=== PATIENT | male | born 2000 | race Caucasian/White ===

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

== ENCOUNTER 2019-11-02 15:49 | Emergency (ER) | payer SELFPAY ==
[2019-11-02 15:56] VITALS: BP 151/98; PULSE 83
[2019-11-02] MEDS ORDERED: Sodium Chloride 0.9% 10 ML Syringe FLUSH PRN (16:07)
[2019-11-02] MEDS ORDERED: Ondansetron 4 MG/2 ML SDV IVPUSH ONE (16:07)
[2019-11-02] MEDS ORDERED: Sodium Chloride 0.9% 1,000 ML IV SCH (16:15)
--- NOTE | 2019-11-02 16:25 | EDM.PDOC ---
ED HPI GENERAL MEDICAL PROBLEM - General Chief Complaint: Abdominal Pain Stated Complaint: vomiting/diarrhea/body aches Time Seen by Provider: 11/02/19 15:58 Source of Information: Reports: Patient History Limitations: Reports: No Limitations - History of Present Illness INITIAL COMMENTS - FREE TEXT/NARRATIVE: Patient is a 19-year-old male who presents with complaints of nausea, vomiting, watery diarrhea, and generalized body aches. He denies any abdominal pain or cramping. States that he "hurts all over ". He specifically verbalizes pain through the muscles of his back that wraps around to his bilateral hips. Patient's girlfriend had previously told the nursing staff that the patient was having right lower quadrant abdominal pain, however patient denies this at this time. He is having no pain in his abdomen but rather generalized pain "everywhere ". States that the symptoms of vomiting and diarrhea started around 11 AM he has had no known sick contacts. Denies any fever, chills, dysuria, or frequency. Right Lower Abdominal Pain Score (Numeric/FACES): 8 Generalized Pain Score (Numeric/FACES): 8 - Related Data Allergies Allergy/AdvReac Type Severity Reaction Status Date / Time aripiprazole [From Abilify] Allergy Rash Verified 11/02/19 15:56 Home Meds: Home Meds Ondansetron [Zofran ODT] 4 mg PO Q6H PRN #10 tab.dis 11/02/19 [Rx] Past Medical History Respiratory History: Reports: Asthma Psychiatric History: Reports: Bipolar, Mood Swings - Infectious Disease History Infectious Disease History: Reports: None - Past Surgical History HEENT Surgical History: Reports: Adenoidectomy, Myringotomy w Tube(s), Tonsillectomy Social & Family History - Family History Family Medical History: Noncontributory - Tobacco Use Smoking Status *Q: Never Smoker - Caffeine Use Caffeine Use: Reports: Coffee - Recreational Drug Use Recreational Drug Use: No ED ROS GENERAL - Review of Systems Review Of Systems: See Below Constitutional: Reports: No Symptoms. Denies: Fever, Chills HEENT: Reports: No Symptoms Respiratory: Reports: No Symptoms Cardiovascular: Reports: No Symptoms Endocrine: Reports: No Symptoms GI/Abdominal: Reports: No Symptoms, Diarrhea, Nausea, Vomiting. Denies: Abdominal Pain, Distension : Reports: No Symptoms. Denies: Discharge, Dysuria, Frequency Musculoskeletal: Reports: Other (Generalized body aches) Skin: Reports: No Symptoms Neurological: Reports: No Symptoms Psychiatric: Reports: No Symptoms Hematologic/Lymphatic: Reports: No Symptoms Immunologic: Reports: No Symptoms ED EXAM, GI/ABD - Physical Exam Exam: See Below Exam Limited By: No Limitations General Appearance: Alert, WD/WN, No Apparent Distress Respiratory/Chest: No Respiratory Distress, Lungs Clear, Normal Breath Sounds, No Accessory Muscle Use, Chest Non-Tender Cardiovascular: Normal Peripheral Pulses, Regular Rate, Rhythm, No Edema, No Gallop, No JVD, No Murmur, No Rub GI/Abdominal Exam: Normal Bowel Sounds, Soft, Non-Tender, No Organomegaly, No Distention, No Abnormal Bruit, No Mass, Pelvis Stable. No: Guarding, Rigid, Rebound Back Exam: Normal Inspection, Full Range of Motion, Other (Generalized muscle tenderness throughout.) Neurological: Alert, Oriented, CN II-XII Intact, Normal Cognition, Normal Gait, Normal Reflexes, No Motor/Sensory Deficits Psychiatric: Normal Affect, Normal Mood Skin Exam: Warm, Dry, Intact, Normal Color, No Rash Course - Vital Signs Last Recorded V/S: Last Vital Signs Temp 98.7 F 11/02/19 15:54 Pulse 83 11/02/19 15:54 Resp 16 11/02/19 15:54 BP 151/98 H 11/02/19 15:54 Pulse Ox 97 11/02/19 18:16 - Orders/Labs/Meds Orders: Active Orders 24 hr Category Date Time Status Peripheral IV Care [RC] . DIRECTED Care 11/02/19 16:08 Active Peripheral IV Insertion Adult [OM.PC] Stat Oth 11/02/19 16:07 Ordered Labs: Laboratory Tests 11/02/19 11/02/19 11/02/19 Range/Units 16:40 16:40 17:20 WBC 11.58 H (4.23-9.07) K/mm3 RBC 5.63 (4.63-6.08) M/mm3 Hgb 16.4 D (13.7-17.5) gm/dl Hct 48.7 (40.1-51.0) % MCV 86.5 D (79.0-92.2) fl MCH 29.1 (25.7-32.2) pg MCHC 33.7 (32.2-35.5) g/dl RDW Std Deviation 42.8 (35.1-43.9) fL Plt Count 226 D (163-337) K/mm3 MPV 11.4 (9.4-12.3) fl Neut % (Auto) 89.1 H (34.0-67.9) % Lymph % (Auto) 2.9 L (21.8-53.1) % [place] % (Auto) 6.9 (5.3-12.2) % Eos % (Auto) 0.9 (0.8-7.0) Baso % (Auto) 0.1 (0.1-1.2) % Neut # (Auto) 10.31 H (1.78-5.38) K/mm3 Lymph # (Auto) 0.34 L (1.32-3.57) K/mm3 [place] # (Auto) 0.80 (0.30-0.82) K/mm3 Eos # (Auto) 0.11 (0.04-0.54) K/mm3 Baso # (Auto) 0.01 (0.01-0.08) K/mm3 Manual Slide Review Abnormal smear Sodium 139 (136-145) mEq/L Potassium 4.0 (3.5-5.1) mEq/L Chloride 103 (98-107) mEq/L Carbon Dioxide 28 (21-32) mEq/L Anion Gap 12.0 (5-15) BUN 18 (7-18) mg/dL Creatinine 1.1 (0.7-1.3) mg/dL Est Cr Clr Drug Dosing 121.06 mL/min Estimated GFR (MDRD) > 60 (>60) mL/min BUN/Creatinine Ratio 16.4 (14-18) Glucose 114 H (74-106) mg/dL Calcium 9.6 (8.5-10.1) mg/dL Total Bilirubin 1.0 (0.2-1.0) mg/dL AST 27 (15-37) U/L ALT 32 (16-63) U/L Alkaline Phosphatase 125 H (46-116) U/L C-Reactive Protein 0.9 (<1.0) mg/dL Total Protein 8.3 H (6.4-8.2) g/dl Albumin 4.4 (3.4-5.0) g/dl Globulin 3.9 gm/dL Albumin/Globulin Ratio 1.1 (1-2) Urine Color Yellow (Yellow) Urine Appearance Clear (Clear) Urine pH 5.5 (5.0-8.0) Ur Specific [place] > or = 1.030 (1.005-1.030) Urine Protein Negative (Negative) Urine Glucose (UA) Negative (Negative) Urine Ketones Negative (Negative) Urine Occult Blood Negative (Negative) Urine Nitrite Negative (Negative) Urine Bilirubin Negative (Negative) Urine Urobilinogen 0.2 (0.2-1.0) Ur Leukocyte Esterase Negative (Negative) Urine RBC 0-5 (0-5) /hpf Urine WBC 0-5 (0-5) /hpf Ur Squamous Epith Cells 0-5 (0-5) /hpf Urine Bacteria Few (FEW) /hpf Urine Mucus Moderate H (FEW) /hpf Meds: Medications Discontinued Medications Generic Name Dose Route Start Last Admin Trade Name Freq PRN Reason Stop Dose Admin Sodium Chloride 1,000 mls @ 999 mls/hr 11/02/19 16:15 11/02/19 16:39 Normal Saline IV 999 mls/hr ASDIRECTED CELESTINE Administration Ondansetron HCl 4 mg 11/02/19 16:07 11/02/19 16:39 Zofran IVPUSH 11/02/19 16:08 4 mg ONETIME ONE Administration Sodium Chloride 10 ml 11/02/19 16:07 11/02/19 16:39 Saline Flush FLUSH 10 ml ASDIRECTED PRN Administration Keep Vein Open - Re-Assessments/Exams Free Text/Narrative Re-Assessment/Exam: 11/02/19 18:03 Hematology was significant for a slightly elevated white count 11.58. Work-up was otherwise normal. CRP was normal. There are no signs of dehydration. On reassessment, patient's nausea has improved. He has had no recurrence of diarrhea while in the ER. He continues to deny any abdominal pain. Discussed with patient that is likely dealing with a viral gastroenteritis. We will discharge him home with some Zofran as well as recommendations for clear liquid diet. Discharge instructions as documented. Departure - Departure Time of Disposition: 18:01 Disposition: Home, Self-Care 01 Condition: Fair Clinical Impression: Gastroenteritis - Discharge Information *PRESCRIPTION DRUG MONITORING PROGRAM REVIEWED*: No *COPY OF PRESCRIPTION DRUG MONITORING REPORT IN PATIENT BRIANA: No Prescriptions: Ondansetron [Zofran ODT] 4 mg PO Q6H PRN #10 tab.dis PRN Reason: Nausea/Vomiting Instructions: Viral Gastroenteritis, Adult Referrals: PCP,None [Primary Care Provider] - Forms: ED Department Discharge Additional Instructions: You were seen in the emergency department today for generalized body aches, vomiting, and diarrhea that started around 11:00 today. Work-up included blood work and a urinalysis. The results of these were found to be normal. As we discussed, it is likely that you are dealing with a viral gastroenteritis. The symptoms generally last from 24 to 72 hours. A prescription for Zofran for nausea has been sent to clinic pharmacy. Uses medication as prescribed. Recommend a clear liquid diet for the next 24 hours and then advance as tolerated. Avoid dairy products and fruit juices until symptoms have completely resolved. If you should experience any worsening symptoms or fail to improve over the course of the next couple days as expected, I would recommend that you return to the emergency department or follow-up in the clinic. Sepsis Event Note - Evaluation Sepsis Screening Result: No Definite Risk - Focused Exam Vital Signs: Vital Signs Temp Pulse Resp BP Pulse Ox 11/02/19 18:16 97 11/02/19 15:54 98.7 F 83 16 151/98 H 100 Date Exam was Performed: 11/02/19 Time Exam was Performed: 21:55 - My Orders Last 24 Hours: My Active Orders 11/02/19 16:07 Peripheral IV Insertion Adult [OM.PC] Stat 11/02/19 16:08 Peripheral IV Care [RC] . DIRECTED - Assessment/Plan Last 24 Hours: My Active Orders 11/02/19 16:07 Peripheral IV Insertion Adult [OM.PC] Stat 11/02/19 16:08 Peripheral IV Care [RC] . DIRECTED
== END 2019-11-02 18:18 | disposition home or self-care (01) ==
LOC: JD.ED 15:49
DX: K52.9 Noninfective gastroenteritis and colitis, unspecified (principal); Z96.22 Myringotomy tube(s) status; Z98.890 Other specified postprocedural states; Z88.8 Allergy status to other drugs, medicaments and biological substances
CPT/HCPCS: 36415; 80053; 81001; 85025; 86140; 96361; 96374; 99284; J2405; J7030; 99283

== ENCOUNTER 2020-06-27 05:07 | Emergency (ER) | payer BC ==
[2020-06-27 05:26] VITALS: BP 147/89; PULSE 79
--- NOTE | 2020-06-27 05:34 | EDM.PDOC ---
ED HPI GENERAL MEDICAL PROBLEM - General Chief Complaint: ENT Problem Stated Complaint: POSSIBLY BROKEN NOSE..2 DAYS AGO Time Seen by Provider: 06/27/20 05:29 Source of Information: Reports: Patient History Limitations: Reports: No Limitations - History of Present Illness INITIAL COMMENTS - FREE TEXT/NARRATIVE: 19-year-old male reports to the ED for evaluation of persistent bleeding from the left naris primarily. 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 When the machine hit the ground the handle flew up and struck him directly in the nose and maxilla inferior to the nose. He reports that subsequently his nose is continued to bleed or have the snuffles. He cannot tell which side is bleeding the most but it appears clinically it is the left. He denies spitting up any blood. Reports diffuse nasal congestion. Has a headache and severe pain on touching his nose. 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 [No Known Home Meds] 06/27/20 [History] Past Medical History Respiratory History: Reports: Asthma Psychiatric History: Reports: Bipolar, Mood Swings - Infectious Disease History Infectious Disease History: Reports: None - Past Surgical History HEENT Surgical History: Reports: Adenoidectomy, Myringotomy w Tube(s), Tonsillectomy Social & Family History - Family History Family Medical History: Noncontributory - Caffeine Use Caffeine Use: Reports: Coffee - Living Situation & Occupation Living situation: Reports: Single Occupation: Employed ED ROS ENT - Review of Systems Review Of Systems: See Below Constitutional: Reports: No Symptoms HEENT: Reports: Nosebleed (Still bleeding from both sides of the nose and trauma 2 days ago), Nose Pain. Denies: Glasses Respiratory: Reports: No Symptoms Cardiovascular: Reports: No Symptoms Endocrine: Reports: No Symptoms GI/Abdominal: Reports: No Symptoms : Reports: No Symptoms Musculoskeletal: Reports: No Symptoms Skin: Reports: No Symptoms Neurological: Reports: No Symptoms ED EXAM, ENT - Physical Exam Exam: See Below Exam Limited By: No Limitations General Appearance: Alert, WD/WN, No Apparent Distress, Other (None very nasally congested. Vital signs are normal with temperature of 36.4 heart rate 80 and sinus respiratory is 20 with O2 sats of 97% room air BP mildly elevated 147/89.) Eye Exam: Bilateral Eye: Normal Inspection, PERRL Nose: Other (Nose clinically is not severely deformed or swollen. There is some mild persistent bleeding from the floor and lateral aspect of the left nares. No active bleeding appreciated from the right nares at this time) Mouth/Throat: Normal Gums, Normal Lips (No loose teeth identified.), Normal Oropharynx (Blood in the posterior pharynx noted.), Normal Teeth. No: Dental Tenderness Head: Atraumatic, Scalp Ecchymosis, Other (Overt signs of pain across the zygoma. Pain both right and left nasal alae.) Neck: Normal Inspection, Supple, Non-Tender. No: Lymphadenopathy (L), Lymphadenopathy (R) Course - Vital Signs Last Recorded V/S: Last Vital Signs Temp 36.4 C 06/27/20 05:19 Pulse 79 06/27/20 05:19 Resp 20 06/27/20 05:19 BP 147/89 H 06/27/20 05:19 Pulse Ox 97 06/27/20 05:19 - Orders/Labs/Meds Meds: Medications Discontinued Medications Generic Name Dose Route Start Last Admin Trade Name Freq PRN Reason Stop Dose Admin Oxymetazoline HCl 15 ml 06/27/20 05:35 06/27/20 05:44 Nasal Decongestant [place] CHRISTIAN 06/27/20 05:36 15 ml ONETIME ONE Administration - Radiology Interpretation Free Text/Narrative:: 19-year-old male presents to the ED after suffering blunt mid facial trauma from the handle of a tamper/packing machine was unloading from the back of a truck 2 days ago. As the largest portion of the machine hit the ground the handle flew up and struck him directly in the nose and maxilla inferior to the nose. He r eports persistent bleeding from the left anterior nares. Denies spitting up any blood. States always blood on his pillow the last 2 days when he has been sleeping. Nose is congested. Exam shows that the nasal mucosa is intact. There is bleeding from the floor of the left naris and lateral daily. No septal hematoma evident. It appears that the septum is midline at this time. He does have some pain throughout the maxilla inferior to the nose. No blood in the oropharynx. No dental malalignment or loose teeth identified. Plan maxillofacial CT to be done. - Re-Assessments/Exams Free Text/Narrative Re-Assessment/Exam: 06/27/20 06:00 CT of the maxillofacial bones has been completed without contrast. It reveals no fractures through the anterior posterior or medial colindres of either maxillary sinus. There are polyps in both nasal sinuses. There is no fracture of the nasal spine. There appears to be a fracture of the midportion of the vomer with slight deviation to the left side. There is extensive soft tissue swelling of the entire left anterior naris. No fractures around the periorbital bones. The remainder of the maxilla is intact without any fractures or dental injuries. Patient will be using Afrin nasal spray to use escorts to the left side of the nares every 12 hours for the next 3 days to gain control of bleeding and let the soft tissue swelling go down. Note given to excuse him from the workplace today and he is for the next 2 days. Continue Motrin 600 mg every 6 hours needed for pain relief. Departure - Departure Time of Disposition: 06:01 Disposition: Home, Self-Care 01 Condition: Fair Clinical Impression: Contusion of nose, initial encounter Closed fracture nasal bone Qualifiers: Encounter type: initial encounter Qualified Code(s): S02.2XXA - Fracture of nasal bones, initial encounter for closed fracture - Discharge Information *PRESCRIPTION DRUG MONITORING PROGRAM REVIEWED*: Not Applicable *COPY OF PRESCRIPTION DRUG MONITORING REPORT IN PATIENT BRIANA: Not Applicable Instructions: Nasal Fracture, [id number], Contusion, [id number] Referrals: PCP,None [Primary Care Provider] - Forms: ED Department Discharge, ED Return to Work/School Form Additional Instructions: Evaluation in the emergency room this morning in regards to persistent bleeding from the left side of your naris post nasal trauma 2 days ago. This is a work- related injury. As you indicated the handle of the tamper chain came back and struck you in the nose and maxilla the tissue and bone below the nose. Persistent oozing from the left side of your nose since that time. CT of the maxillofacial bones shows no fractures through the maxillary sinuses. The nasal spine bone is on injured. There is a fracture of the septum of the nose or the vomer bone with slight deviation to the left. Large amount of soft tissue swelling appreciated on the left side involving the sphenoid sinus on the left side. Treatment is good to continue Motrin 600 mg every 6 hours needed this for pain relief. Afrin nasal spray 2 squirts to the left side every 12 hours for the next 3 days to gain control of bleeding and help reduce soft tissue swelling secondary to the trauma. Suggest off work today to rest and allow the left- sided swelling to clot well and stop bleeding. Sepsis Event Note (ED) - Evaluation Sepsis Screening Result: No Definite Risk
[2020-06-27] MEDS ORDERED: Oxymetazoline 0.05% Nasal Spray 30 ML Bottle NAS ONE (05:35)
--- NOTE | 2020-06-27 09:08 | CT ---
"PROCEDURE INFORMATION: Exam: CT Maxillofacial Without Contrast Exam date and time: 06/27/2020 5:31 AM Age: 19 years old Clinical indication: Injury or trauma; Work related; Blunt trauma (contusions or hematomas); Injury details: Blunt mid face trauma from handle of a tamper machine. Persistent bleeding lt nares. Pain maxilla inferior to nose TECHNIQUE: Imaging protocol: Computed tomography images of the face without contrast. Radiation optimization: All CT scans at this facility use at least one of these dose optimization techniques: automated exposure control; mA and/or kV adjustment per patient size (includes targeted exams where dose is matched to clinical indication); or iterative reconstruction. COMPARISON: No relevant prior studies available. FINDINGS: Orbital cavity: The globes appear grossly intact, and no definite intraorbital hematoma is identified. Bones/joints: The orbital floors and lamina papyracea are intact. The temporomandibular joints are normally aligned. No acute fracture is identified. Paranasal sinuses: Mild chronic mucosal disease involves the maxillary and sphenoid sinuses, with some retention cysts or polyps in the maxillary sinuses. The paranasal sinuses and air cells are otherwise clear. Mastoid air cells: The mastoid air cells are clear. Soft tissues: The soft tissues appear grossly unremarkable. Brain: The visualized intracranial structures appear grossly unremarkable. IMPRESSION: No acute fracture identified. Thank you for allowing us to participate in the care of your patient. CLAUDIA FLANAGAN | Final Radiology Report CONFIDENTIALITY STATEMENT This report is intended only for use by the referring physician, and only in accordance with law. If you received this in error, call [phone]. Page 2 of 2 Dictated and Authenticated by: Bebo Youssef MD 06/27/2020 7:05 AM Central Time ([place] & [place]) EMILY"
== END 2020-06-27 06:16 | disposition home or self-care (01) ==
LOC: JD.ED 05:07
DX: S02.2XXA Fracture of nasal bones, initial encounter for closed fracture (principal); J45.909 Unspecified asthma, uncomplicated; Z88.8 Allergy status to other drugs, medicaments and biological substances; Z90.49 Acquired absence of other specified parts of digestive tract; W22.8XXA Striking against or struck by other objects, initial encounter; Y99.0 Civilian activity done for income or pay
CPT/HCPCS: 70486; 99283; A9270

== ENCOUNTER 2021-09-17 12:13 | Emergency (ER) | payer BC ==
[2021-09-17 12:42] VITALS: BP 137/85; PULSE 75
[2021-09-17] MEDS ORDERED: Lactated Ringers 1,000 ML IV ONE (13:17)
[2021-09-17] MEDS ORDERED: Sodium Chloride 0.9% 10 ML SDV FLUSH ONE (15:06)
[2021-09-17] MEDS ORDERED: Iopamidol 612 MG/ML 100 ML Bottle IVPUSH ONE (15:06)
== END 2021-09-17 17:00 | disposition home or self-care (01) ==
LOC: JD.ED 12:13
DX: R10.31 Right lower quadrant pain (principal); Q55.4 Other congenital malformations of vas deferens, epididymis, seminal vesicles and prostate; Z88.8 Allergy status to other drugs, medicaments and biological substances
CPT/HCPCS: 36415; 74177; 76705; 80053; 81003; 83690; 85025; 86140; 99284; J7120; Q9967; 99285

== ENCOUNTER 2023-02-09 20:13 | Emergency (ER) | payer BC ==
[2023-02-09] MEDS ORDERED: Lactated Ringers 1,000 ML IV ONE (20:42)
[2023-02-09] MEDS ORDERED: Lactated Ringers 1,000 ML IV SCH (20:45)
[2023-02-09] MEDS ORDERED: Ondansetron 4 MG/2 ML SDV IVPUSH ONE ×2 (20:52→21:54)
[2023-02-09 21:04] LABS: BASOPHILS ABSOLUTE AUTO 0.01 K/mm3 (0.01-0.08); BASOPHILS PERCENT AUTO 0.1 % (0.1-1.2); EOSINOPHILS ABSOLUTE AUTO 0.02 K/mm3 (0.04-0.54); EOSINOPHILS PERCENT AUTO 0.2 (0.8-7.0); HEMATOCRIT 49.5 % (40.1-51.0); HEMOGLOBIN 16.8 gm/dl (13.7-17.5); IMMATURE GRAN ABSOLUTE AUTO 0.02 K/mm3 (0.00-0.10); IMMATURE GRAN PERCENT AUTO 0.2 % (<=1.0); LYMPHOCYTES ABSOLUTE AUTO 0.32 K/mm3 (1.32-3.57); LYMPHOCYTES PERCENT AUTO 3.4 % (21.8-53.1); MEAN CORPUSCULAR HEMOGLOBIN 30.7 pg (25.7-32.2); MEAN CORPUSCULAR HGB CONC 33.9 g/dl (32.2-35.5); MEAN CORPUSCULAR VOLUME 90.3 fl (79.0-92.2); MEAN PLATELET VOLUME 10.8 fl (9.4-12.3); MONOCYTES ABSOLUTE AUTO 0.57 K/mm3 (0.30-0.82); MONOCYTES PERCENT AUTO 6.1 % (5.3-12.2); NEUTROPHILS ABSOLUTE AUTO 8.45 K/mm3 (1.78-5.38); PLATELET COUNT,PLT 232 K/mm3 (163-337); RED BLOOD CELL COUNT 5.48 M/mm3 (4.63-6.08); WHITE BLOOD CELL COUNT,WBC 9.39 K/mm3 (4.23-9.07)
[2023-02-09 21:27] LABS: A/G RATIO 1.1 (1-2); ALANINE AMINOTRANSFERASE,ALT 25 U/L (16-63); ALBUMIN 4.3 g/dl (3.4-5.0); ALKALINE PHOSPHATASE 117 U/L (46-116); ANION GAP 12.2 (5-15); ASPARTATE AMNIOTRANSFERASE,AST 20 U/L (15-37); BILIRUBIN TOTAL 1.3 mg/dL (0.2-1.0); BLOOD UREA NITROGEN,BUN 18 mg/dL (7-18); BUN/CREATININE RATIO 16.4 (14-18); CALCIUM 9.6 mg/dL (8.5-10.1); CARBON DIOXIDE,CO2 29 mEq/L (21-32); CHLORIDE,CL 99 mEq/L (98-107); CREATININE 1.1 mg/dL (0.7-1.3); ESTIMATED GFR 97 mL/min (>60); GLUCOSE RANDOM 126 mg/dL (70-99); POTASSIUM,K 4.2 mEq/L (3.5-5.1); PROTEIN TOTAL,TP 8.3 g/dl (6.4-8.2); SODIUM,NA 136 mEq/L (136-145)
[2023-02-09 22:04] LABS: APPEARANCE,URINE CLEAR (Clear); BILIRUBIN,URINE NEGATIVE (Negative); COLOR,URINE YELLOW (Yellow); GLUCOSE,URINE NEGATIVE (Negative); KETONES,URINE NEGATIVE (Negative); LEUKOCYTE ESTERASE,URINE NEGATIVE (Negative); NITRITE,URINE NEGATIVE (Negative); OCCULT BLOOD,URINE NEGATIVE (Negative); PH,URINE 7.5 (5.0-8.0); PROTEIN,URINE 1+ (Negative)
[2023-02-09 23:05] LABS: BACTERIA,URINE MODERATE /hpf (FEW); EPITHELIAL CELLS,URINE 0-5 /hpf (0-5); MUCUS,URINE RARE /hpf (FEW); RBC,URINE 0-5 /hpf (0-5); WBC,URINE 0-5 /hpf (0-5)
[2023-02-10] MEDS ORDERED: Metoclopramide 10 MG/2 ML SDV IVPUSH ONE (00:22)
[2023-02-10] MEDS ORDERED: Acetaminophen/HYDROcodone 325-5 MG Tab PO ONE (00:27)
[2023-02-10] MEDS ORDERED: Ondansetron 4 MG Tab.DIS PO ONE (02:01)
[2023-02-10 02:07] VITALS: BP 127/65; PULSE 85
== END 2023-02-10 02:14 | disposition home or self-care (01) ==
LOC: JD.ED 20:13
DX: K52.9 Noninfective gastroenteritis and colitis, unspecified (principal); J45.909 Unspecified asthma, uncomplicated; Z88.8 Allergy status to other drugs, medicaments and biological substances
CPT/HCPCS: 36415; 80053; 81001; 85025; 96361; 96374; 96375; 96376; 99284; A9270; J2405; J2765; J7120

== ENCOUNTER 2024-02-12 15:09 | Emergency (ER) | payer SELFPAY ==
[2024-02-12 15:51] LABS: BASOPHILS ABSOLUTE AUTO 0.1 K/mm3 (0.0-0.2); BASOPHILS PERCENT AUTO 0.3 % (0.0-1.0); EOSINOPHILS ABSOLUTE AUTO 0.1 K/mm3 (0.0-0.4); EOSINOPHILS PERCENT AUTO 0.3 % (0.0-6.0); HEMATOCRIT 46.2 % (42.0-52.0); HEMOGLOBIN 16.1 gm/dl (14.0-18.0); IMMATURE GRAN PERCENT AUTO 0.6 % (0.0-0.4); LYMPHOCYTES ABSOLUTE AUTO 1.4 K/mm3 (1.0-4.8); LYMPHOCYTES PERCENT AUTO 7.6 % (24.0-44.0); MEAN CORPUSCULAR HEMOGLOBIN 31.9 pg (28.0-32.0); MEAN CORPUSCULAR HGB CONC 34.8 g/dl (32.0-36.0); MEAN CORPUSCULAR VOLUME 91.5 fl (83.0-99.0); MEAN PLATELET VOLUME 10.6 fl (9.4-12.4); MONOCYTES ABSOLUTE AUTO 1.3 K/mm3 (0.0-0.8); MONOCYTES PERCENT AUTO 7.3 % (0.0-8.0); NEUTROPHILS ABSOLUTE AUTO 15.1 K/mm3 (1.8-7.7); NEUTROPHILS PERCENT AUTO 83.9 % (41.0-71.0); PLATELET COUNT,PLT 234 K/mm3 (150-400); RED BLOOD CELL COUNT 5.05 M/mm3 (4.52-5.90); WHITE BLOOD CELL COUNT,WBC 18.01 K/mm3 (3.9-11.3)
[2024-02-12 16:19] LABS: LACTIC ACID 1.4 mmol/L (0.4-2.0)
[2024-02-12 16:21] LABS: A/G RATIO 1.1 (1-2); ALANINE AMINOTRANSFERASE,ALT 28 U/L (16-63); ALBUMIN 3.9 g/dl (3.4-5.0); ALKALINE PHOSPHATASE 104 U/L (46-116); ANION GAP 12.9 (5-15); ASPARTATE AMNIOTRANSFERASE,AST 17 U/L (15-37); BILIRUBIN TOTAL 1.7 mg/dL (0.2-1.0); BLOOD UREA NITROGEN,BUN 9 mg/dL (7-18); BUN/CREATININE RATIO 6.9 (14-18); CALCIUM 9.4 mg/dL (8.5-10.1); CARBON DIOXIDE,CO2 29 mEq/L (21-32); CHLORIDE,CL 100 mEq/L (98-107); CREATININE 1.3 mg/dL (0.7-1.3); EST CRCL DRUG DOSING (CG) 99.02 mL/min; ESTIMATED GFR 79 mL/min (>60); GLUCOSE RANDOM 141 mg/dL (70-99); MAGNESIUM 1.7 mg/dL (1.8-2.4); POTASSIUM,K 3.9 mEq/L (3.5-5.1); PROTEIN TOTAL,TP 7.6 g/dl (6.4-8.2); SODIUM,NA 138 mEq/L (136-145); TSH 0.472 uIU/mL (0.358-3.74)
[2024-02-12] MEDS: Lactated Ringers 1,000 ML IV ONE (16:28)
[2024-02-12] MEDS: Sodium Chloride 0.9% 10 ML Syringe FLUSH PRN (16:29)
[2024-02-12] MEDS: Alum Hydrox/Mag Hydrox/Simeth 30 ML, Lidocaine 2% 15 ML PO ONE (16:29)
[2024-02-12 16:39] LABS: TROPONIN I HIGH SENSITIVITY < 4 pg/mL (<=76)
[2024-02-12] MEDS: cefTRIAXone 2 GM in Sodium Chloride 0.9% 100 ML IV ONE (17:58)
[2024-02-12 18:40] VITALS: BP 143/83; PULSE 85
== END 2024-02-12 18:33 | disposition home or self-care (01) ==
LOC: JD.ED 15:09
DX: J18.9 Pneumonia, unspecified organism (principal); R00.0 Tachycardia, unspecified; J45.909 Unspecified asthma, uncomplicated; Z88.1 Allergy status to other antibiotic agents; Z79.51 Long term (current) use of inhaled steroids; Z79.899 Other long term (current) drug therapy
CPT/HCPCS: 36415; 71045; 80053; 80307; 83605; 83735; 84443; 84484; 85025; 93005; 93246; 96361; 96365; 99285; J0696; J3490; J7120; 93010; 99284; A9270-GY

== ENCOUNTER 2024-04-24 14:23 | Emergency (ER) | payer OTHER ==
[2024-04-24] MEDS ORDERED: Bacitracin Oint 15 GM Tube TOP ONE (18:08)
[2024-04-24 19:53] VITALS: BP 159/89; PULSE 99
== END 2024-04-24 18:52 | disposition home or self-care (01) ==
LOC: JD.ED 14:23
DX: S40.811A Abrasion of right upper arm, initial encounter (principal); J45.909 Unspecified asthma, uncomplicated; Z79.899 Other long term (current) drug therapy; Z88.8 Allergy status to other drugs, medicaments and biological substances; X58.XXXA Exposure to other specified factors, initial encounter
CPT/HCPCS: 99283; A9270

== ENCOUNTER 2024-08-15 01:35 | Emergency (ER) | payer BC, OTHER ==
[2024-08-15 01:47] VITALS: BP 140/84; PULSE 66
[2024-08-15] MEDS: Albuterol/Ipratropium 3.0-0.5 MG/3 ML Neb Soln NEB ONE (02:45)
[2024-08-15 02:50] LABS: BASOPHILS ABSOLUTE AUTO 0.1 K/mm3 (0.0-0.2); BASOPHILS PERCENT AUTO 0.6 % (0.0-1.0); EOSINOPHILS ABSOLUTE AUTO 0.6 K/mm3 (0.0-0.4); EOSINOPHILS PERCENT AUTO 6.2 % (0.0-6.0); IMMATURE GRAN ABSOLUTE AUTO 0.03 K/mm3 (0.00-0.05); IMMATURE GRAN PERCENT AUTO 0.3 % (0.0-0.4); LYMPHOCYTES ABSOLUTE AUTO 2.5 K/mm3 (1.0-4.8); LYMPHOCYTES PERCENT AUTO 28.8 % (24.0-44.0); MEAN CORPUSCULAR HEMOGLOBIN 31.5 pg (28.0-32.0); MEAN CORPUSCULAR HGB CONC 34.9 g/dl (32.0-36.0); MEAN CORPUSCULAR VOLUME 90.3 fl (83.0-99.0); MEAN PLATELET VOLUME 10.1 fl (9.4-12.4); MONOCYTES ABSOLUTE AUTO 0.9 K/mm3 (0.0-0.8); MONOCYTES PERCENT AUTO 9.6 % (0.0-8.0); NEUTROPHILS ABSOLUTE AUTO 4.8 K/mm3 (1.8-7.7); NEUTROPHILS PERCENT AUTO 54.5 % (41.0-71.0); PLATELET COUNT,PLT 257 K/mm3 (150-400); RED BLOOD CELL COUNT 4.76 M/mm3 (4.52-5.90); WHITE BLOOD CELL COUNT,WBC 8.81 K/mm3 (3.9-11.3)
[2024-08-15] MEDS: Dexamethasone 1 MG/ML Oral Drops 30 ML Bottle PO ONE (02:55)
[2024-08-15 03:14] LABS: A/G RATIO 1.1 (1-2); ALBUMIN 3.6 g/dl (3.4-5.0); ANION GAP 11.6 (5-15); BILIRUBIN TOTAL 0.5 mg/dL (0.2-1.0); BUN/CREATININE RATIO 10.9 (14-18); CALCIUM 8.8 mg/dL (8.5-10.1); CREATININE 1.1 mg/dL (0.7-1.3); EST CRCL DRUG DOSING (CG) 117.03 mL/min; POTASSIUM,K 3.6 mEq/L (3.5-5.1)
== END 2024-08-15 04:11 | disposition home or self-care (01) ==
LOC: JD.ED 01:35
DX: J06.9 Acute upper respiratory infection, unspecified (principal); F17.210 Nicotine dependence, cigarettes, uncomplicated; J45.909 Unspecified asthma, uncomplicated; Z79.899 Other long term (current) drug therapy; Z88.8 Allergy status to other drugs, medicaments and biological substances
CPT/HCPCS: 36415; 71045; 80053; 85025; 86308; 87428; 87651; 94640; 99284; A9270; J7620-GY

== ENCOUNTER 2025-01-18 00:40 | Emergency (ER) | payer BC ==
[2025-01-18] MEDS: Proparacaine 0.5% Ophth Soln 15 ML Bottle EYERT ONE (01:40)
[2025-01-18 02:29] VITALS: BP 144/90; PULSE 61
== END 2025-01-18 02:26 | disposition home or self-care (01) ==
LOC: JD.ED 00:40
DX: T15.01XA Foreign body in cornea, right eye, initial encounter (principal); J45.909 Unspecified asthma, uncomplicated; Z88.8 Allergy status to other drugs, medicaments and biological substances; Z79.51 Long term (current) use of inhaled steroids; W45.8XXA Other foreign body or object entering through skin, initial encounter
CPT/HCPCS: 65220; 99282; 99283-25; J3490